=== PATIENT | female | born 1945 | race Caucasian/White ===

== ENCOUNTER → 2024-01-24 13:54 | Outpatient (REF) | payer MEDICARE, OTHER, SELFPAY | LOC: RCS 13:54 | PROVIDERS: ATTENDING PHYSICIAN Orthopaedic Surgery Hand Surgery | DX: S52.022A Displaced fracture of olecranon process without intraarticular extension of left ulna, initial encounter for closed fracture (principal); Z01.818 Encounter for other preprocedural examination | CPT/HCPCS: 93005 ==